=== PATIENT | male | born 1945 | race Caucasian/White ===

== ENCOUNTER 2020-04-10 10:18 | Emergency (ER) | payer MEDICARE, SELFPAY ==
[2020-04-10 10:24] VITALS: BP 174/76; PULSE 61; RESP 18; TEMP 37; O2SAT 98; BMI 31.4
--- NOTE | 2020-04-10 10:41 | ED_ITS ---
HPI - General Adult General: Chief complaint: General Medical Stated complaint: covid exposure Time Seen by Provider: 04/10/20 10:24 Source: patient Mode of arrival: ambulatory Limitations: no limitations History of Present Illness: HPI narrative: 75-year-old male patient presents to the emergency department requesting COVID testing. Patient states he does not have any complaints patient states he does not have any symptoms. Patient states that he wants to be tested because he has family members of family members that have tested positive for COVID. Patient denies any chest pain or shortness of breath. Patient denies any fever. Patient denies any neck pain. Patient denies any nausea vomiting diarrhea. Patient denies any body aches. Patient states he is here only for COVID testing Associated symptoms: Deny chest pain, dyspnea, headache(s), nausea, palpitations or vomiting Review of Systems General: Reports: 10 or more systems reviewed and unremarkable except in HPI and below Const: Denies: fever(s) or chills ENMT: Denies: throat pain or ear or mastoid pain Card: Denies: chest pain, palpitations or irregular heart rhythm Resp: Denies: dyspnea, productive cough, non-productive cough, wheezing, stridor or pain on inspiration GI: Denies: abdominal pain, nausea, vomiting, diarrhea or constipation : Denies: flank pain, difficulty urinating, dysuria, urinary frequency or urinary urgency Musc: Denies: neck pain or back pain Neuro: Denies: headache(s), dizziness or vertigo Psych: Denies: suicidal ideation or homicidal ideation Physical Exam Const: COMMON NORMALS: no acute distress, average body habitus, patient oriented x3, no limitations, healthy appearing, alert and well nourished Neck/C-Spine: COMMON NORMALS: no JVD Resp: COMMON NORMALS: normal respiratory effort, No retractions, No use of accessory muscles, clear to auscultation bilaterally and percussion normal AUSCULTATION: clear to auscultation bilaterally PERCUSSION: percussion normal Cardio: COMMON NORMALS: no JVD, regular rate and regular rhythm RATE: regular rate RHYTHM: regular rhythm Neuro: COMMON NORMALS: patient oriented x3 SENSORIUM/ORIENTATION: Yes alert Course Vital Signs: Vital signs: Vital Signs Temperature 98.6 F 04/10/20 10:24 Pulse Rate 61 04/10/20 10:24 Respiratory Rate 18 04/10/20 10:24 Blood Pressure 174/76 04/10/20 10:24 Pulse Oximetry 98 04/10/20 10:24 MDM - General Adult MDM Narrative: Medical decision making narrative: Patient is well-appearing nontoxic and in no acute distress. 75-year-old male patient presents to the emergency department requesting COVID testing. Patient states he does not have any complaints patient states he does not have any symptoms. Patient states that he wants to be tested because he has family members of family members that have tested positive for COVID. Patient denies any chest pain or shortness of breath. Patient denies any fever. Patient denies any neck pain. Patient denies any nausea vomiting diarrhea. Patient denies any body aches. Patient states he is here only for COVID testing I will test patient for COVID. I advised patient that he needs to self quarantine until he knows the results of his COVID test. I have advised patient of return precautions as well as home care instructions. Patient is medically cleared and appropriate for discharge patient has a negative adult physical exam Discharge Plan Discharge Patient Disposition: Home Clinical Impression: Close exposure to COVID-19 virus Condition: Stable Discharge Orders: Discharge Order (Routine); Ordered 04/10/20 Ordered By: Kamla Street Discharge Diet: Advance as tolerated Discharge Activity: Resume usual activity Activity Restrictions/Additional Instructions: Please self quarantine until Covid results are known Pleae return to the ER with any Shortness of breath or Chest pain Discharge Date/Time: 04/10/20 10:35 Coding Level of Care Code ED Foreclosure Clerk for Yehuda Shaver
[2020-04-11 21:51] LABS: Coronavirus Lab Test PTC Negative
--- NOTE | 2020-04-12 09:04 | PC.NURSE ---
pt contacted and given the results of his COVID test
== END 2020-04-10 10:35 | disposition home or self-care (01) ==
LOC: ER 10:41
PROVIDERS: Emergency Provider Registered Nurse
DX: Z20.828 Contact with and (suspected) exposure to other viral communicable diseases (principal)
CPT/HCPCS: 12345; 87635; 99281; 99282